=== PATIENT | male | born 1970 | race Caucasian/White ===

== ENCOUNTER 2017-04-08 11:37 | Emergency (ER) | payer BC ==
[2017-04-08 11:37] VITALS: BMI 25.9
[2017-04-08 11:46] VITALS: RESP 18
[2017-04-08] MEDS ORDERED: Iohexol 240 (50 ml) PO STA (12:34)
[2017-04-08] MEDS ORDERED: Sodium Chloride 0.9% 500 ML IV ONE (12:34)
[2017-04-08] MEDS ORDERED: Iohexol 240 (50 ml) ONE (12:41)
[2017-04-08] MEDS ORDERED: Sodium Chloride 0.9% 1,000 ML ONE (12:42)
[2017-04-08 12:47] LABS: BASO % 0.8 % (0.0-2.0); EOS # 0.3 K/uL (0.0-0.7); HEMATOCRIT 42.8 % (35.0-51.0); LYMPH # 1.5 K/uL (1.0-4.3); LYMPH % 32.2 % (20.0-40.0); MEAN CELL VOLUME 94.9 fL (80.0-94.0); MEAN CORPUSCULAR HGB CONC 34.8 g/dL (33.0-37.0); MEAN PLATELET VOLUME 8.6 fL (7.2-11.7); MONO # 0.6 K/uL (0.0-0.8); MONO % 12.8 % (0.0-10.0); NRBC % 0.1 % (0.0-2.0); RBC URINE 2 /hpf (0-3); RED CELL DISTRIBUTION WIDTH 12.3 % (11.5-14.5); URINE BILIRUBIN NEGATIVE (NEGATIVE); URINE BLOOD NEGATIVE (NEGATIVE); URINE COLOR Yellow (YELLOW); URINE GLUCOSE (UA) NORMAL (Normal); URINE KETONE NEGATIVE (NEGATIVE); URINE LEUKOCYTE ESTERASE NEG Leu/uL (Negative); URINE PROTEIN NEGATIVE (NEGATIVE); URINE UROBILINOGEN NORMAL mg/dL (0.2-1.0); WBC URINE 1 /hpf (0-5); WHITE BLOOD COUNT 4.7 K/uL (4.8-10.8)
--- NOTE | 2017-04-08 12:49 | C.PDOC ---
History Of Present Illness 46 y/o male presents to ED for evaluation of LLQ and suprapubic abdominal pain associated with n/v/d, and dysuria. Pt described pain as sharp, intermittent, and cramping. Notes being seen at urgent care who instructed pt to report to ED for further evaluation. Denies penile discharge, fever, or chills. Time Seen by Provider: 04/08/17 12:21 Chief Complaint (Nursing): Abdominal Pain History Per: Patient History/Exam Limitations: no limitations Onset/Duration Of Symptoms: Days, Intermittent Episodes Current Symptoms Are (Timing): Still Present Location Of Pain/Discomfort: LLQ, Suprapubic Quality Of Discomfort: Sharp, Cramping Associated Symptoms: Nausea, Vomiting, Diarrhea, Urinary Symptoms. denies: Fever, Chills, Back Pain, Chest Pain Exacerbating Factors: None Alleviating Factors: None Recent travel outside of the [place]: No Additional History Per: Patient Past Medical History Reviewed: Historical Data, Nursing Documentation, Vital Signs Vital Signs: Last Vital Signs Temp 98 F 04/08/17 11:43 Pulse 104 H 04/08/17 11:43 Resp 18 04/08/17 11:43 BP 142/87 04/08/17 11:46 Pulse Ox 95 04/08/17 15:42 - Medical History PMH: Hypercholesterolemia Denies: Depression - [facility] INJECT/INFUSE NEC (11/26/11) Family History: States: Unknown Family Hx - Social History Hx Alcohol Use: Yes Hx Substance Use: Yes (marijuana every other day, last use last night) - Immunization History Hx Tetanus Toxoid Vaccination: No Hx Influenza Vaccination: No Hx Pneumococcal Vaccination: No Review Of Systems Constitutional: Negative for: Fever, Chills Cardiovascular: Negative for: Chest Pain Respiratory: Negative for: Shortness of Breath Gastrointestinal: Positive for: Nausea, Vomiting, Abdominal Pain, Diarrhea. Negative for: Hematochezia, Hematemesis Genitourinary: Positive for: Dysuria. Negative for: Frequency, Hematuria, Penile Discharge Physical Exam - Physical Exam Appears: Non-toxic, No Acute Distress Skin: Normal Color, Warm, Dry Head: Atraumatic, Normacephalic Eye(s): bilateral: Normal Inspection Oral Mucosa: Moist Chest: Symmetrical Cardiovascular: Rhythm Regular, No Murmur Respiratory: Normal Breath Sounds, No Rales, No Rhonchi, No Wheezing Gastrointestinal/Abdominal: Soft, Tenderness (LLQ, suprapubic), No Guarding, No Rebound Back: No CVA Tenderness Extremity: Normal ROM, No Pedal Edema Neurological/Psych: Oriented x3, Normal Speech ED Course And Treatment - Laboratory Results Result Diagrams: 04/08/17 12:40 04/08/17 12:40 O2 Sat by Pulse Oximetry: 95 (RA) Pulse Ox Interpretation: Normal Medical Decision Making Medical Decision Making: Blood work, UA, Abd & Pelvis CT ordered and reviewed. Pt was given Pepcid, Toradol, Zofran, and IV fluids. Assessment: Abdominal pain On re-eval, pt reports feeling better. CT scan shows diverticulitis. Pt is non- toxic, and elects for outpatient management. Will prescribe antibiotics and pain meds. Pt is being discharged home with instructions to follow up with PMD in 1-2 days, and return to ED if symptoms worsen. Disposition Counseled Patient/Family Regarding: Studies Performed, Diagnosis, Need For Followup, Rx Given - Disposition Disposition: HOME/ ROUTINE Disposition Time: 15:39 Condition: IMPROVED Additional Instructions: follow up with your doctor in 2 days call to make an appointment take medications as prescribed return to hospital if symptoms worsens or progress Prescriptions: Acetaminophen/Codeine [Tylenol/Codeine 300 MG/30 MG] 1 tab PO Q6H PRN #12 tab PRN Reason: Pain, Severe (8-10) Ciprofloxacin HCl [Cipro] 500 mg PO BID #20 tab Famotidine [Pepcid] 20 mg PO BID #20 tab Metronidazole [Flagyl] 500 mg PO BID #20 tablet Naproxen [Naprosyn] 500 mg PO BID PRN #16 tab PRN Reason: Pain, Moderate (4-7) Instructions: Diverticulitis (ED), Diverticulitis (DC) Forms: [facility] (Estonian), General Discharge Instructions - Clinical Impression Clinical Impression: Diverticulitis - Scribe Statement The provider has reviewed the documentation as recorded by the Vinny Seay All medical record entries made by the Renettaibivette were at my direction and personally dictated by me. I have reviewed the chart and agree that the record accurately reflects my personal performance of the history, physical exam, medical decision making, and the department course for this patient. I have also personally directed, reviewed, and agree with the discharge instructions and disposition.
[2017-04-08 12:57] LABS: ALKALINE PHOSPHATASE 67 U/L (38-126); ALT/SGPT 67 U/L (21-72); AST/SGOT 35 U/L (17-59); BILIRUBIN,TOTAL 0.8 mg/dL (0.2-1.3); BLOOD UREA NITROGEN 11 mg/dL (9-20); CALCIUM 8.4 mg/dl (8.6-10.4); CARBON DIOXIDE 26 mmol/L (22-30); CHLORIDE 103 mmol/L (98-107); GFR AFRICAN-AMERICAN > 60; GLUCOSE,RANDOM 117 mg/dL (75-110); POTASSIUM 3.6 mmol/L (3.6-5.2); SODIUM 136 mmol/L (132-148); TOTAL PROTEIN 8.3 g/dL (6.3-8.3)
[2017-04-08 13:04] LABS: ALB/GLOB RATIO 0.9 (1.0-2.1)
[2017-04-08] MEDS ORDERED: Iodixanol 320 MG/ML 100 ML BOTTLE IV ONE (14:04)
--- NOTE | 2017-04-08 15:04 | CT ---
PROCEDURE: CT Abdomen and Pelvis with oral and IV contrast. HISTORY: abd pain COMPARISON: None available TECHNIQUE: Contiguous axial images of the abdomen and pelvis. Oral and IV contrast was administered. Coronal and Sagittal reformats generated and reviewed. Contrast dose: 100 mL Visipaque IV Radiation dose: Total exam DLP = 789.22 mGy-cm. This CT exam was performed using one or more of the following dose reduction techniques: Automated exposure control, adjustment of the mA and/or kV according to patient size, and/or use of iterative reconstruction technique. FINDINGS: LOWER THORAX: No visible consolidation, pleural effusion, or pneumothorax. Small hiatal hernia/distal esophageal wall thickening. LIVER: Unremarkable. GALLBLADDER AND BILE DUCTS: Unremarkable. PANCREAS: Unremarkable. SPLEEN: 7 mm and 8 mm probable splenules. Otherwise unremarkable. ADRENALS: Unremarkable. KIDNEYS AND URETERS: The kidneys enhance symmetrically. No hydronephrosis or obstructing renal calculus. BLADDER: The urinary bladder appears unremarkable. REPRODUCTIVE: Unremarkable. APPENDIX: The appendix appears within normal limits of caliber. No secondary signs of acute appendicitis. BOWEL: The stomach is nondistended. The bowel loops appear within normal limits of caliber without evidence of intestinal obstruction. Rectosigmoid colonic wall thickening and inflammatory stranding in region of extensive diverticulosis ; appearance consistent with acute diverticulitis. PERITONEUM: No significant free fluid. No definite free air. LYMPH NODES: No bulky lymphadenopathy identified. VASCULATURE: No aortic aneurysm. BONES: No acute osseous abnormality is detected. OTHER FINDINGS: None. IMPRESSION: Findings consistent with acute diverticulitis involving the rectosigmoid colon.
[2017-04-08 16:06] VITALS: BP 146/81; PULSE 62; TEMP 97.6; O2SAT 98
== END 2017-04-08 16:06 | disposition home or self-care (01) ==
LOC: C.ER 11:37
DX: R11.2 Nausea with vomiting, unspecified (principal); K57.92 Diverticulitis of intestine, part unspecified, without perforation or abscess without bleeding; E78.00 Pure hypercholesterolemia, unspecified
CPT/HCPCS: 74177; 80053; 81001; 83690; 85025; 85378; 96361; 96374; 96375; 99285; J1885; J2405; J7040; Q9966; Q9967